=== PATIENT | female | born 2000 | race Two or more races ===

== ENCOUNTER 2024-04-27 22:50 | Inpatient (IN) | payer OTHER ==
[~2024-04-27] VITALS: Ht 154.9 cm; Wt 68.9 kg
[2024-04-27] MEDS ORDERED: BETAMETHASONE ACETATE,SOD PHOS 30 MG/5 ML ML IM STA (22:55)
[2024-04-27] MEDS ORDERED: AMPICILLIN SODIUM 2,000 MG VIAL IV ONE (23:00)
[2024-04-27] MEDS ORDERED: RINGERS SOLUTION,LACTATED 1,000 ML IV SCH (23:00)
[2024-04-27 23:16] LABS: HEMATOCRIT 25.7 % (36.0-45.00); MEAN CELL VOLUME 77.6 fL (80.00-100.00); MEAN CORPUSCULAR HEMOGLOBIN 25.4 pg (27.00-32.0); MEAN CORPUSCULAR HGB CONC 32.7 g/dl (32.0-36.0); PLATELET COUNT 297 K/uL (150-450); RED CELL DISTRIBUTION WIDTH 14.7 % (11.5-14.5)
[2024-04-27 23:21] LABS: HEMOGLOBIN 8.4 g/dL (12.0-15.00)
[2024-04-27 23:28] LABS: INR 1.04; PARTIAL THROMBOPLASTIN TIME 22.7 SECONDS (22.0-34.0); PROTHROMBIN TIME 11.3 SECONDS (9.0-11.5)
[2024-04-27 23:32] VITALS: BP 87/58
[2024-04-27 23:32] LABS: ALBUMIN 2.5 gm/dL (3.4-5.0); BILIRUBIN TOTAL 0.28 mg/dL (0.3-1.2); CALCIUM 8.5 mg/dL (8.5-10.1); CREATININE SERUM 0.59 mg/dL (0.55-1.02); GFR 126.31; GLOBULINA 3.5 G/DL (2.4-3.5); POTASSIUM 4.1 mEq/L (3.5-5.1)
[2024-04-28] MEDS ORDERED: SIMETHICONE 125 MG CAPSULE PO SCH (00:32)
[2024-04-28] MEDS ORDERED: MEPERIDINE HCL 25 MG/ML AMPUL IV ONE (00:35)
[2024-04-28] MEDS ORDERED: PROMETHAZINE HCL 50 MG/ML AMPUL IV SCH (00:37)
[2024-04-28] MEDS ORDERED: MEPERIDINE HCL/PF 50 MG/ML VIAL IV SCH (00:37)
[2024-04-28] MEDS ORDERED: ERYTHROMYCIN BASE OPHT 1GM EACH TUBE OP ONE (00:45)
[2024-04-28] MEDS ORDERED: RINGERS SOLUTION,LACTATED 1,000 ML IV SCH (00:45)
[2024-04-28] MEDS ORDERED: CHLORHEXIDINE GLUCONATE 120 ML BOTTLE TOP NR (00:45)
[2024-04-28] MEDS ORDERED: OXYTOCIN 1,000 ML IV SCH (00:45)
[2024-04-28] MEDS ORDERED: MORPHINE SULFATE 4 MG/ML VIAL IV ONE ×2 (01:20→01:50)
[2024-04-28 04:12] VITALS: BP 106/70
[2024-04-28 06:20] LABS: MEAN CELL VOLUME 78.5 fL (80.00-100.00); MEAN CORPUSCULAR HGB CONC 32.6 g/dl (32.0-36.0); PLATELET COUNT 249 K/uL (150-450); RED BLOOD COUNT 2.74 M/uL (4.00-6.00); RED CELL DISTRIBUTION WIDTH 14.3 % (11.5-14.5)
[2024-04-28 06:26] LABS: MEAN CORPUSCULAR HEMOGLOBIN 25.5 pg (27.00-32.0)
[2024-04-28 06:27] LABS: HEMATOCRIT 21.5 % (36.0-45.00)
[2024-04-28 08:03] VITALS: BP 113/77
[2024-04-28] MEDS ORDERED: ACETAMINOPHEN WITH CODEINE 1 UDTAB TABLET PO PRN (09:00)
[2024-04-28] MEDS ORDERED: NAPROXEN 500 MG TABLET PO SCH (09:00)
[2024-04-28 16:00] VITALS: BP 100/67
[2024-04-28] MEDS ORDERED: BETAMETHASONE ACETATE,SOD PHOS 30 MG/5 ML ML IM SCH (23:00)
[2024-04-29 01:41] VITALS: BP 95/61
[2024-04-29 07:54] VITALS: BP 95/64
[2024-04-29 13:11] VITALS: BP 114/68
[2024-04-29 16:00] VITALS: BP 110/69
[2024-04-29 17:06] LABS: MEAN CORPUSCULAR HGB CONC 32.7 g/dl (32.0-36.0); PLATELET COUNT 261 K/uL (150-450); RED BLOOD COUNT 3.66 M/uL (4.00-6.00); RED CELL DISTRIBUTION WIDTH 15.1 % (11.5-14.5)
[2024-04-29 17:16] LABS: HEMOGLOBIN 9.8 g/dL (12.0-15.00); MEAN CORPUSCULAR HEMOGLOBIN 26.7 pg (27.00-32.0)
[2024-04-30 00:50] VITALS: BP 99/64
[2024-04-30 08:27] VITALS: BP 106/67
[2024-04-30] MEDS ORDERED: NAPR500T14 PO (14:05)
[2024-04-30] MEDS ORDERED: ACETAMINOPHEN-1 EAC2 PO (14:05)
[2024-04-30] MEDS ORDERED: MAXFE CAPLET1 EAC1 PO (14:05)
[2024-05-01] MEDS ORDERED: ERYTHROMYCIN BASE OPHT 1GM EACH TUBE OP ONE (16:00)
[2024-05-01] MEDS ORDERED: OXYTOCIN 10 UNITS/ML VIAL IV ONE (16:00)
== END 2024-04-30 16:21 | disposition home or self-care (01) | DRG 786 ==
LOC: LDR 22:50 → EDBD 22:50 → OB/GYN 22:50
PROVIDERS: Obstetrics & Gynecology; ADMIT Obstetrics & Gynecology Obstetrics; ATTEND Obstetrics & Gynecology Obstetrics
PROC: 4A1HXCZ Monitoring of Products of Conception, Cardiac Rate, External Approach (ICD-10-PCS; 2024-04-27)
PROC: 10D00Z1 Extraction of Products of Conception, Low, Open Approach (ICD-10-PCS; principal; 2024-04-28 07:30)
PROC: 30233N1 Transfusion of Nonautologous Red Blood Cells into Peripheral Vein, Percutaneous Approach (ICD-10-PCS; 2024-04-29)
DX: O44.13 Complete placenta previa with hemorrhage, third trimester (principal); O60.14X0 Preterm labor third trimester with preterm delivery third trimester, not applicable or unspecified; Z3A.32 32 weeks gestation of pregnancy; Z37.0 Single live birth; Z20.822 Contact with and (suspected) exposure to COVID-19